=== PATIENT | male | born 1990 | race Caucasian/White ===

== ENCOUNTER 2016-11-21 17:00 | Emergency (ER) | payer OTHER ==
[~2016-11-21] VITALS: Ht 180.3 cm; Wt 144.0 kg
[2016-11-21 17:03] VITALS: Ht 180.3 cm; Wt 144.0 kg
[2016-11-21] MEDS ORDERED: IBUP-1050 PO (17:12)
[2016-11-21] MEDS ORDERED: LEVO200T PO (17:12)
[2016-11-21] MEDS ORDERED: ONDA4TAB46 PO (17:12)
[2016-11-21] MEDS ORDERED: IBUPROFEN 800 MG TAB PO STA (17:19)
[2016-11-21] MEDS ORDERED: ONDANSETRON INJ 2 MG/ML 2 ML VIAL IV STA (17:19)
[2016-11-21] MEDS ORDERED: SODIUM CHLORIDE 0.9% 1000ML 1,000 ML IV STA ×2 (17:19)
[2016-11-21] MEDS ORDERED: ACETAMINOPHEN 500 MG TAB PO STA (17:19)
[2016-11-21] MEDS ORDERED: IBUPROFEN 200 MG TAB ONE (17:25)
--- NOTE | 2016-11-21 17:26 | EMERGENCY ROOM VISIT NOTE ---
History First contact with patient: 17:08 Chief Complaint: ILLNESS Stated Complaint: VOMITING,DIARRHEA, CANT KEEP DOWN FLUIDS History of Present Illness The patient is a 26 year old male who presents to the Emergency Room with complaints of vomiting, diarrhea and body aches which started this morning. The patient reports that his symptoms started abruptly approximately 10 hours ago. He states that he has had multiple episodes of both vomiting and diarrhea. He has only been able to keep down a small amount of liquids. He reports that he took a Zofran which he had left over from a surgery which did give him some relief of his nausea. He attempted to take ibuprofen this morning but states that he vomited it up immediately afterward. He does state that he felt feverish last night. He has had body aches and a headache. He reports that his abdomen becomes sore when he vomits, but denies any abdominal pain. He denies any recent foreign travel, unknown water sources or recent antibiotic use. He does report that he ate a burger yesterday and it could have been uncooked. He denies any cough, chest pain, shortness of breath, neck pain, sore throat, earaches, urinary symptoms or blood in his bowel movements. He did receive a flu vaccine this year. 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 Review of Systems A complete 10-point Review of Systems was discussed with the patient, with pertinent positives and negatives listed in the History of Present Illness. All remaining Review of Systems questions can be considered negative unless otherwise specified. Social History Smoking Status: Never Smoker Current/Historical Medications Scheduled Ibuprofen (Advil), 400 MG PO DAILY Levothyroxine Sodium (Synthroid), 200 MCG PO DAILY Ondasetron Odt (Zofran Odt), 4 MG SL Q6H Scheduled PRN Ondansetron Hcl (Zofran), Unknown Dose PO Q8 PRN for Nausea or Vomiting Allergies Coded Allergies: No Known Allergies (Unverified , 11/21/16) Physical Exam Vital Signs Date Time Temp Pulse Resp B/P Pulse Ox O2 Delivery O2 Flow Rate FiO2 11/21/16 20:20 103 20 112/70 94 11/21/16 18:26 38.2 109 20 112/63 93 Room Air 11/21/16 18:04 116 11/21/16 17:03 38.9 122 22 116/67 96 Physical Exam VITALS: Vitals are noted on the nurse's note and reviewed by myself. Vital signs stable. GENERAL: This is a 26-year-old male, in no acute distress, nondiaphoretic, well- developed well-nourished. SKIN: The skin was without rashes. EARS: External auditory canals clear, tympanic membranes pearly mayorga without erythema or effusion bilaterally. EYES: Pupils equal round and reactive to light and accommodation. Conjunctivae without injection, sclerae without icterus. MOUTH: Mucous membranes moist. Tonsils are not enlarged. Pharynx without erythema or exudate. NECK: Supple without nuchal rigidity. No lymphadenopathy. HEART: Tachycardic, regular rhythm without murmurs gallops or rubs. LUNGS: Clear to auscultation bilaterally without wheezes, rales or rhonchi. ABDOMEN: Positive bowel sounds x 4. Soft, nondistended, nontender to palpation. NEURO: Patient was alert and oriented to person place and time. Medical Decision & Procedures Laboratory Results 11/21/16 17:30 Red Blood Count 4.83, Mean Corpuscular Volume 89.9, Mean Corpuscular Hemoglobin 32.1, Mean Corpuscular Hemoglobin Concent 35.7, Mean Platelet Volume 10.3, Neutrophils (%) (Auto) 88.6, Lymphocytes (%) (Auto) 6.6, Monocytes (%) (Auto) 4.5, Eosinophils (%) (Auto) 0.1, Basophils (%) (Auto) 0.0, Neutrophils # (Auto) 9.45, Lymphocytes # (Auto) 0.70, Monocytes # (Auto) 0.48, Eosinophils # (Auto) 0.01, Basophils # (Auto) 0.00 11/21/16 17:30 Test 11/21/16 17:30 11/21/16 17:35 11/21/16 19:05 White Blood Count 10.66 K/uL (4.8-10.8) Red Blood Count 4.83 M/uL (4.7-6.1) Hemoglobin 15.5 g/dL (14.0-18.0) Hematocrit 43.4 % (42-52) Mean Corpuscular Volume 89.9 fL (80-100) Mean Corpuscular Hemoglobin 32.1 pg (25-34) Mean Corpuscular Hemoglobin Concent 35.7 g/dl (32-36) Platelet Count 163 K/uL (130-400) Mean Platelet Volume 10.3 fL (7.4-10.4) Neutrophils (%) (Auto) 88.6 % Lymphocytes (%) (Auto) 6.6 % Monocytes (%) (Auto) 4.5 % Eosinophils (%) (Auto) 0.1 % Basophils (%) (Auto) 0.0 % Neutrophils # (Auto) 9.45 K/uL (1.4-6.5) Lymphocytes # (Auto) 0.70 K/uL (1.2-3.4) Monocytes # (Auto) 0.48 K/uL (0.11-0.59) Eosinophils # (Auto) 0.01 K/uL (0-0.5) Basophils # (Auto) 0.00 K/uL (0-0.2) RDW Standard Deviation 40.8 fL (36.4-46.3) RDW Coefficient of Variation 12.4 % (11.5-14.5) Immature Granulocyte % (Auto) 0.2 % Immature Granulocyte # (Auto) 0.02 K/uL (0.00-0.02) Anion Gap 8.0 mmol/L (3-11) Est Creatinine Clear Calc Drug Dose 124.1 ml/min Estimated GFR () 86.7 Estimated GFR (Non- 74.8 BUN/Creatinine Ratio 9.3 (10-20) Calcium Level 8.5 mg/dl (8.5-10.1) Total Bilirubin 0.7 mg/dl (0.2-1) Aspartate Amino Transf (AST/SGOT) 34 U/L (15-37) Alanine Aminotransferase (ALT/SGPT) 61 U/L (12-78) Alkaline Phosphatase 72 U/L (45-117) Total Protein 7.9 gm/dl (6.4-8.2) Albumin 3.8 gm/dl (3.4-5.0) Globulin 4.1 gm/dl (2.5-4.0) Albumin/Globulin Ratio 0.9 (0.9-2) Lipase 129 U/L (73-393) Influenza Type A Antigen Neg for Influ A (NEG) Influenza Type B Antigen Neg for Influ B (NEG) Urine Color YELLOW Urine Appearance CLOUDY (CLEAR) Urine pH 6.0 (4.5-7.5) Urine Specific [place] 1.018 (1.000-1.030) Urine Protein NEG (NEG) Urine Glucose (UA) NEG (NEG) Urine Ketones NEG (NEG) Urine Occult Blood NEG (NEG) Urine Nitrite NEG (NEG) Urine Bilirubin NEG (NEG) Urine Urobilinogen NEG (NEG) Urine Leukocyte Esterase NEG (NEG) Urine WBC (Auto) 0 /hpf (0-5) Urine RBC (Auto) 0-4 /hpf (0-4) Urine Hyaline Casts (Auto) 0 /lpf (0-5) Urine Epithelial Cells (Auto) 0-5 /lpf (0-5) Urine Bacteria (Auto) NEG (NEG) Medications Administered Medications (Trade) Dose Ordered Sig/Lele Route Start Time Stop Time Status Last Admin Dose Admin Sodium Chloride 1,000 ml @ 999 mls/hr Q1H1M STAT IV 11/21/16 17:19 11/21/16 18:19 DC 11/21/16 17:25 999 MLS/HR Sodium Chloride (Nss 1000ml) 1,000 ml @ 999 mls/hr Q1H1M STAT IV 11/21/16 17:19 11/21/16 18:19 DC 11/21/16 17:26 999 MLS/HR Ondansetron HCl (Zofran Inj) 4 mg NOW STAT IV 11/21/16 17:19 11/21/16 17:21 DC 11/21/16 17:25 4 MG Ibuprofen (Motrin Tab) 800 mg NOW STAT PO 11/21/16 17:19 11/21/16 17:21 DC 11/21/16 17:19 800 MG Acetaminophen (Tylenol Tab) 1,000 mg NOW STAT PO 11/21/16 17:19 11/21/16 17:21 DC 11/21/16 17:26 1,000 MG Medical Decision Differential diagnosis includes gastroenteritis, colitis, influenza, viral illness, appendicitis, cholecystitis, pancreatitis, among others. The patient was evaluated as above. Labs were drawn and IV access was obtained. Imaging studies were performed and read by radiology as above. The patient was medicated with 2 L normal saline solution, 800 mg ibuprofen and 4 mg Zofran. The patient was reassessed multiple times during their stay in the emergency department and remained in stable condition. The patient is a 26-year-old male who presents today complaining of flulike symptoms. He was febrile on presentation. Labs revealed no leukocytosis, anemia or concerning electrolyte abnormalities. The patient felt significantly better after IV hydration and antiemetics. His temperature improved after ibuprofen. His heart rate improved after hydration and fever control. Urinalysis was not suggestive of infection. Influenza testing was negative. I feel the patient's symptoms are likely secondary to a viral flulike illness. He has no abdominal tenderness and I do not feel that further testing is necessary at this time. The patient was instructed to follow closely with his primary care provider or return here for any worsening symptoms. Based on the patient's presentation, lab results, and imaging studies, I feel the patient is stable for outpatient treatment. The patient's case was reviewed with Dr. Oliver, ED attending physician, who agreed with my assessment and treatment plan. Discharge instructions were reviewed with the patient. The patient verbalized understanding of my assessment and treatment plan and was discharged home in good condition. Impression Primary Impression: Flu-like symptoms Departure Information Dispostion Home / Self-Care Condition GOOD Prescriptions Ondasetron Odt (ZOFRAN ODT) 4 Mg Tab 4 MG SL Q6H for Nausea, #15 TAB Prov: Pearl Kyle ., ALBERTO 11/21/16 Referrals No Doctor, Assigned (PCP) Patient Instructions My [facility] Additional Instructions Rest and drink plenty of fluids. You have been prescribed Zofran to be used for any nausea or vomiting. Take as prescribed. For pain/fever control, you can use the following [id number] medicines ( if >12 yo): - Regular strength (325mg/tab) Tylenol (acetaminophen) 2 tabs every 4-6 hours as needed. Do not exceed 12 tablets in a 24 hour period. Avoid taking more than 4 grams (4000 mg) of Tylenol per day. This includes any other sources of acetaminophen you may take on a regular basis. - Regular strength (200 mg/tab) Advil (ibuprofen) 1-2 tabs every 4-6 hours as needed. Do not exceed a dose of 3200 mg per day. If symptoms persist for greater than 1-2 days, follow-up with [facility] or a primary care provider. For any worsening symptoms or new/concerning symptoms, return to the emergency department.
[2016-11-21 18:26] VITALS: TEMP 38.2
[2016-11-21 19:01] LABS: COMPLETE YES; EOS % 0.1 %; HEMATOCRIT 43.4 % (42-52); IG% 0.2 %; LYMPH % 6.6 %; MEAN CELL VOLUME 89.9 fL (80-100); MEAN CORPUSCULAR HEMOGLOBIN 32.1 pg (25-34); MEAN CORPUSCULAR HGB CONC 35.7 g/dl (32-36); MEAN PLATELET VOLUME 10.3 fL (7.4-10.4); MONO % 4.5 %; NEUT % 88.6 %; PLATELET COUNT 163 K/uL (130-400); RED BLOOD COUNT 4.83 M/uL (4.7-6.1); WHITE BLOOD COUNT 10.66 K/uL (4.8-10.8)
[2016-11-21 19:14] LABS: URINE APPEARANCE CLOUDY (CLEAR); URINE BILIRUBIN NEG (NEG); URINE COLOR YELLOW; URINE EPITHELIAL CELL AUTO 0-5 /lpf (0-5); URINE NITRITE NEG (NEG); URINE SPECIFIC GRAVITY 1.018 (1.000-1.030); UROBILINOGEN NEG (NEG); ZZUR CULT IF INDIC CLEAN CATCH NO
[2016-11-21 19:16] LABS: MANUAL MICROSCOPIC REQUIRED? NO; REVIEW REQ? NO
[2016-11-21 19:23] LABS: BUN/CREATININE RATIO 9.3 (10-20); CALCIUM 8.5 mg/dl (8.5-10.1); CREATININE 1.3 mg/dl (0.60-1.40); POTASSIUM 3.8 mmol/L (3.5-5.1)
[2016-11-21 19:25] LABS: ALB/GLOB RATIO 0.9 (0.9-2)
[2016-11-21] MEDS ORDERED: ONDA4TAB10 SL (20:05)
[2016-11-21 20:20] VITALS: BP 112/70; PULSE 103; O2SAT 94
[2016-11-27] MEDS ORDERED: ZTHM250 PO (14:26)
== END 2016-11-21 20:08 | disposition home or self-care (01) ==
LOC: C.EDB 17:02 → C.EDC 20:08
DX: J11.1 Influenza due to unidentified influenza virus with other respiratory manifestations (principal); Z79.899 Other long term (current) drug therapy

== ENCOUNTER 2016-11-25 16:01 | Inpatient (IN) | payer OTHER ==
[~2016-11-25] VITALS: Ht 180.3 cm; Wt 142.0 kg
[~2016-11-25 16:01] MED LIST: IBUP-1050 PO; LEVO200T PO; ONDA4TAB10 SL; ONDA4TAB46 PO
[2016-11-25] MEDS ORDERED: SODIUM CHLORIDE 0.9% 1000ML 2,000 ML IV STA (17:32)
[2016-11-25] MEDS ORDERED: ONDANSETRON INJ 2 MG/ML 2 ML VIAL IV STA (17:32)
[2016-11-25] MEDS ORDERED: ACETAMINOPHEN 500 MG TAB PO STA (17:32)
--- NOTE | 2016-11-25 17:35 | EMERGENCY ROOM VISIT NOTE ---
History Report prepared by Nicholas: Tylor Rubio Under the Supervision of: Dr. Dony Johnson M.D. First contact with patient: 17:22 Chief Complaint: RECTAL BLEEDING Stated Complaint: VERY BLOODY LQUID STOOL, FEVER Nursing Triage Summary: pt to [facility] ED with 1 episode of bright red blood with BM about 1 hr ago pt was seen here on wednesday with n/v/d the n/v have gone away History of Present Illness The patient is a 26 year old male who presents to the Emergency Room with complaints of episodes of rectal bleeding occurring earlier today. He notes he was here 4 days ago with a fever, vomiting, and diarrhea. He reports that the vomiting has stopped, but that the fever has persisted intermittently, and notes a temperature of 100.5 today. He notes also the diarrhea has persisted and has been loose and liquidy. He has noticed a small amount of blood mixed in with his stool the past few days, and notes that today he had two bowel movements that consisted only of blood without any stool. The patient denies taking blood thinners regularly, but notes he has been alternating with Acetaminophen and Ibuprofen for the past few days, the last was today with Ibuprofen. He notes having abdominal cramping that is new today, and denies any past abdominal surgeries or past ulcers. He adds that he currently feels somewhat dehydrated. The patient reports taking Synthroid 200 mcg. He denies any recent sick contacts, and reports being on a z-pack this past July of 2016. The patient notes he was seen at [facility] after his ER visit 4 days ago, and reports that his platelets were abnormal. He adds that his stool culture was negative for C. diff. Source of History: patient Onset: earlier today Position: other (rectum) Quality: other (rectal bleeding) Timing: other (episodes) Associated Symptoms: + abdominal pain (cramping), + diarrhea, + fevers, No vomiting Review of Systems See HPI for pertinent positives & negatives. A total of 10 systems reviewed and were otherwise negative. Past Medical & Surgical No past medical problems stated. Family History No pertinent family history stated. Social History Smoking Status: Never Smoker Marital Status: in relationship Current/Historical Medications Scheduled Levothyroxine Sodium (Synthroid), 200 MCG PO DAILY Scheduled PRN Ibuprofen (Advil), 200-600 MG PO DAILY PRN for Pain Ondasetron Odt (Zofran Odt), 4 MG SL Q6H PRN for Nausea or Vomiting Allergies Coded Allergies: No Known Allergies (Unverified , 11/25/16) Physical Exam Vital Signs Date Time Temp Pulse Resp B/P Pulse Ox O2 Delivery O2 Flow Rate FiO2 11/25/16 21:56 88 20 118/73 96 Room Air 11/25/16 21:01 88 20 115/70 96 Room Air 11/25/16 19:42 88 20 115/70 96 Room Air 11/25/16 18:13 80 11/25/16 16:13 37.7 109 20 121/77 96 Room Air Physical Exam GENERAL: Patient is in no acute distress. HEENT: No acute trauma, normocephalic atraumatic, mucous membranes moist, no nasal congestion, no scleral icterus. NECK: No stridor, no adenopathy, no meningismus, trachea is midline. LUNGS: Clear to auscultation bilaterally, no wheeze, no rhonchi, breath sounds equal. HEART: Without murmurs gallops or rubs, regular rate and rhythm. ABDOMEN: Soft, nontender, bowel sounds positive and hyperactive, no hernias, no peritonitis. EXTREMITIES: No cyanosis or edema, full range of motion of all the joints without pain or difficulty, no signs for acute trauma. NEUROLOGIC: Oriented x 3, no acute motor or sensory deficits, no focal weakness. SKIN: No rash, no jaundice, no diaphoresis. RECTAL: No external source for bleeding. Digital exam reveals no stool, but heme testing was positive. Medical Decision & Procedures ER Provider Diagnostic Interpretation: Radiology results and stated below per my review and radiologist interpretation: ABDOMEN AND PELVIS CT WITH IV AND ORAL CONTRAST FINDINGS: Minimal bibasilar atelectasis. Fatty infiltration of liver. Gallbladder is negative for distention. Kidneys enhance uniformly. Spleen and pancreas are unremarkable. Cecum and proximal ascending colon shows significant wall thickening and/or edematous change. Terminal ileum appears to be unremarkable. There is a trace amount. A colonic infiltrative change with a trace amount of fluid within the lower right paracolic gutter region. At this point and air-filled appendix is identified. The appendix most likely is normal with a trace amount surrounding reactive fluid. Possibility of a colitis versus the less likely possibility of appendicitis epiploica or cecal diverticulitis is a consideration. There is no drainable abscess or collection. The remainder the colon demonstrates a slight degree of wall thickening of the transverse and descending colonic regions. Moderate amount of fecal material is identified within the sigmoid. There is again no evidence for abscess collection or obstruction. IMPRESSION: 1. Findings consistent with wall thickening and pericolonic infiltrative change of the cecum, proximal a sending colon, as well as components of the descending and sigmoid regions. 2. Trace pericolonic fluid with no evidence for abscess collection or obstruction. 3. The appendix is considered air-filled and most likely normal 4. Overall, the appearance is most consistent with that of a nonspecific colitis, with possibility of a superimposed component of cecal diverticulitis a less likely possibility. Electronically signed by: Ata Velazquez M.D. 11/25/2016 8:46 PM Dictated Date/Time: 11/25/2016 8:40 PM Laboratory Results 11/25/16 17:43 Red Blood Count 4.82, Mean Corpuscular Volume 87.8, Mean Corpuscular Hemoglobin 31.3, Mean Corpuscular Hemoglobin Concent 35.7, Mean Platelet Volume 9.3, Neutrophils (%) (Auto) 62.0, Lymphocytes (%) (Auto) 18.8, Monocytes (%) (Auto) 17.1, Eosinophils (%) (Auto) 0.4, Basophils (%) (Auto) 0.4, Neutrophils # (Auto ) 3.31, Lymphocytes # (Auto) 1.00, Monocytes # (Auto) 0.91, Eosinophils # (Auto ) 0.02, Basophils # (Auto) 0.02 11/25/16 17:43 Test 11/25/16 17:43 White Blood Count 5.33 K/uL (4.8-10.8) Red Blood Count 4.82 M/uL (4.7-6.1) Hemoglobin 15.1 g/dL (14.0-18.0) Hematocrit 42.3 % (42-52) Mean Corpuscular Volume 87.8 fL (80-100) Mean Corpuscular Hemoglobin 31.3 pg (25-34) Mean Corpuscular Hemoglobin Concent 35.7 g/dl (32-36) Platelet Count 187 K/uL (130-400) Mean Platelet Volume 9.3 fL (7.4-10.4) Neutrophils (%) (Auto) 62.0 % Lymphocytes (%) (Auto) 18.8 % Monocytes (%) (Auto) 17.1 % Eosinophils (%) (Auto) 0.4 % Basophils (%) (Auto) 0.4 % Neutrophils # (Auto) 3.31 K/uL (1.4-6.5) Lymphocytes # (Auto) 1.00 K/uL (1.2-3.4) Monocytes # (Auto) 0.91 K/uL (0.11-0.59) Eosinophils # (Auto) 0.02 K/uL (0-0.5) Basophils # (Auto) 0.02 K/uL (0-0.2) RDW Standard Deviation 39.9 fL (36.4-46.3) RDW Coefficient of Variation 12.4 % (11.5-14.5) Immature Granulocyte % (Auto) 1.3 % Immature Granulocyte # (Auto) 0.07 K/uL (0.00-0.02) Prothrombin Time 11.0 SECONDS (9.0-12.0) Prothromb Time International Ratio 1.0 (0.9-1.1) Activated Partial Thromboplast Time 27.1 SECONDS (21.0-31.0) Partial Thromboplastin Ratio 1.0 Anion Gap 8.0 mmol/L (3-11) Est Creatinine Clear Calc Drug Dose 133.3 ml/min Estimated GFR () 95.5 Estimated GFR (Non- 82.4 BUN/Creatinine Ratio 5.8 (10-20) Calcium Level 8.9 mg/dl (8.5-10.1) Total Bilirubin 0.6 mg/dl (0.2-1) Aspartate Amino Transf (AST/SGOT) 28 U/L (15-37) Alanine Aminotransferase (ALT/SGPT) 50 U/L (12-78) Alkaline Phosphatase 80 U/L (45-117) Total Protein 7.6 gm/dl (6.4-8.2) Albumin 3.2 gm/dl (3.4-5.0) Globulin 4.4 gm/dl (2.5-4.0) Albumin/Globulin Ratio 0.7 (0.9-2) Laboratory results reviewed by me. Medications Administered Medications (Trade) Dose Ordered Sig/Lele Route Start Time Stop Time Status Last Admin Dose Admin Sodium Chloride (Nss 1000ml) 2,000 ml @ 999 mls/hr Q2H1M STAT IV 11/25/16 17:32 11/25/16 19:32 DC 11/25/16 18:02 999 MLS/HR Ondansetron HCl (Zofran Inj) 4 mg NOW STAT IV 11/25/16 17:32 11/25/16 17:35 DC 11/25/16 18:02 4 MG Acetaminophen (Tylenol Tab) 1,000 mg NOW STAT PO 11/25/16 17:32 11/25/16 17:35 DC 11/25/16 18:03 1,000 MG ED Course 1724: The patient was evaluated in room C7. A complete history and physical exam was performed. 1731: Ordered Acetaminophen 1,000 mg PO, Zofran Inj 4 mg IV, and NSS 2,000 ml @ 999 mls/hr IV. 2099: Discussed the patient's case with Dr. Bradley who advises that the patient stay in the hospital. 2104: I updated the patient. 2114: Discussed the patient's case with Dr. Berkowitz. The patient will be evaluated for further management. Medical Decision Differentials include diverticulitis or colitis, upper or lower GI bleed, anemia , coagulopathy, and dehydration. There is no leukocytosis or concerning anemia. No significant electrolyte abnormality, kidney failure or hepatitis. Stool C. difficile testing was negative, stool cultures are pending. Abdominal and pelvis CT shows evidence for colitis, no diverticulitis, no abscess. The patient has had bloody stool, he has a fever, he's been sick for multiple days and is not improving. I did discuss this case with the on-call GI physician, admission/observation was recommended. The patient may require a colonoscopy. At this point, his colitis could be infectious, possibly bacterial , possibly viral. He has failed outpatient treatment. I did talk to the patient and the case finisher. The on-call hospitalist was consulted. Consults Time Called: 2049 Consulting Physician: Lili Moses Returned Call: [phone] Discussed the patient's case with Dr. Bradley who advises that the patient stay in the hospital. Additional Consults: Time Called: 2109 Consulted Physician: SHARON Oakes Returned Call: [phone] Additional Comments: Discussed the patient's case with Dr. Berkowitz. The patient will be evaluated for further management. Impression Primary Impression: Rectal bleeding Additional Impressions: Colitis Failure of outpatient treatment Scribe Attestation The scribe's documentation has been prepared under my direction and personally reviewed by me in its entirety. I confirm that the note above accurately reflects all work, treatment, procedures, and medical decision making performed by me. Departure Information Dispostion Being Evaluated By Hospitalist Referrals Arlen Ordoñez M.D. (PCP) Patient Instructions My [facility] Problem Qualifiers
[2016-11-25] MEDS ORDERED: ONDA4TAB10 SL (17:55)
[2016-11-25 17:56] LABS: BASO % 0.4 %; BASO ABS # 0.02 K/uL (0-0.2); COMPLETE YES; EOS % 0.4 %; HEMATOCRIT 42.3 % (42-52); IG% 1.3 %; LYMPH % 18.8 %; MEAN CELL VOLUME 87.8 fL (80-100); MEAN CORPUSCULAR HEMOGLOBIN 31.3 pg (25-34); MEAN CORPUSCULAR HGB CONC 35.7 g/dl (32-36); MEAN PLATELET VOLUME 9.3 fL (7.4-10.4); MONO % 17.1 %; PLATELET COUNT 187 K/uL (130-400); RED BLOOD COUNT 4.82 M/uL (4.7-6.1); WHITE BLOOD COUNT 5.33 K/uL (4.8-10.8)
[2016-11-25] MEDS ORDERED: OPTIRAY 320 IV PRN (18:15)
[2016-11-25 18:30] LABS: BUN/CREATININE RATIO 5.8 (10-20); CALCIUM 8.9 mg/dl (8.5-10.1); CREATININE 1.2 mg/dl (0.60-1.40)
[2016-11-25 18:33] LABS: ALB/GLOB RATIO 0.7 (0.9-2)
--- NOTE | 2016-11-25 20:47 | DIAGNOSTIC IMAGING REPORT ---
ABDOMEN AND PELVIS CT WITH IV AND ORAL CONTRAST CT DOSE: 1517.05 mGy.cm HISTORY: Pain ABDOMINAL PAIN/GI--? DIVERTICULITIS--GIVE PO AND IV CONTRAST TECHNIQUE: Multiaxial CT images of the abdomen and pelvis were performed following the use of intravenous and oral contrast. COMPARISON STUDY: None. FINDINGS: Minimal bibasilar atelectasis. Fatty infiltration of liver. Gallbladder is negative for distention. Kidneys enhance uniformly. Spleen and pancreas are unremarkable. Cecum and proximal ascending colon shows significant wall thickening and/or edematous change. Terminal ileum appears to be unremarkable. There is a trace amount. A colonic infiltrative change with a trace amount of fluid within the lower right paracolic gutter region. At this point and air-filled appendix is identified. The appendix most likely is normal with a trace amount surrounding reactive fluid. Possibility of a colitis versus the less likely possibility of appendicitis epiploica or cecal diverticulitis is a consideration. There is no drainable abscess or collection. The remainder the colon demonstrates a slight degree of wall thickening of the transverse and descending colonic regions. Moderate amount of fecal material is identified within the sigmoid. There is again no evidence for abscess collection or obstruction. IMPRESSION: 1. Findings consistent with wall thickening and pericolonic infiltrative change of the cecum, proximal a sending colon, as well as components of the descending and sigmoid regions. 2. Trace pericolonic fluid with no evidence for abscess collection or obstruction. 3. The appendix is considered air-filled and most likely normal 4. Overall, the appearance is most consistent with that of a nonspecific colitis, with possibility of a superimposed component of cecal diverticulitis a less likely possibility. Electronically signed by: Ata Velazquez M.D. 11/25/2016 8:46 PM Dictated Date/Time: 11/25/2016 8:40 PM
[2016-11-25] MEDS ORDERED: ACETAMINOPHEN 325 MG TAB PO PRN (22:00)
[2016-11-25] MEDS ORDERED: ZOLPIDEM TARTRATE 5 MG TAB PO PRN (22:00)
[2016-11-25] MEDS ORDERED: ONDANSETRON INJ 2 MG/ML 2 ML VIAL IV PRN (22:15)
[2016-11-25] MEDS ORDERED: ACETAMINOPHEN IV 100 ML IV PRN (22:15)
[2016-11-25] MEDS ORDERED: MoRPHine SULFATE 4 MG/ML 1 ML CARP\\VIAL IV PRN (22:15)
[2016-11-25] MEDS ORDERED: MoRPHine SULFATE 2 MG/ML CARP IV PRN (22:15)
--- NOTE | 2016-11-25 22:27 | History and Physical ---
History & Physical Date & Time of Service: Nov 25, 2016 at 22:28 Chief Complaint: Very Bloody Lquid Stool, Fever Primary Care Physician: Arlen Ordoñez M.D. History of Present Illness Source: patient The patient is a 26-year-old male who initially presented to the emergency department 4 days ago with fever, vomiting and diarrhea. Since that time, the vomiting has stopped, but the temperature has been intermittently elevated and today was 100.5F. The diarrhea has been persistent as well, but the past few days has been mixed with blood, and today he had 2 bowel movements that were only of blood without any stool. He reports that he has been taking acetaminophen alternating with ibuprofen over the past few days. Abdominal cramping is new today he has not had any recent travel, and has not had any sick exposures. He was seen at [facility] after his ER visit 4 days ago, and reports having a stool test that was negative for C. difficile. He has not been on any recent antibiotics. Upon questioning, he reports that his symptoms occurred shortly after eating a hamburger at an eatery downtown. Social History Smoking Status: Never Smoker Smokeless Tobacco Use: No Alcohol Use: none Drug Use: none Marital Status: , in relationship Housing status: lives with family Occupational Status: employed Multi-Drug Resistant Organisms History of MDRO: No Allergies Coded Allergies: No Known Allergies (Unverified , 11/25/16) Home Medications Scheduled Levothyroxine Sodium (Synthroid), 200 MCG PO DAILY Scheduled PRN Ibuprofen (Advil), 200-600 MG PO DAILY PRN for Pain Ondasetron Odt (Zofran Odt), 4 MG SL Q6H PRN for Nausea or Vomiting Review of Systems The patient denies chest pain, palpitations, shortness of breath, cough, lower extremity swelling, vision change, hearing change, sore throat, fevers, chills, sweats, weight change, blood in urine, dysuria, urinary frequency or urgency, lightheadedness, dizziness, headache, memory loss, rash, abnormal bruising or bleeding, imbalance, focal or generalized weakness, numbness or tingling in arms or legs, back or neck pain, night sweats, or allergy symptoms. The review of systems is otherwise negative other than for that already noted above, and at least 10 systems have been reviewed. Physical Exam Vital Signs Date Time Temp Pulse Resp B/P Pulse Ox O2 Delivery O2 Flow Rate FiO2 11/25/16 21:56 88 20 118/73 96 Room Air 11/25/16 21:01 88 20 115/70 96 Room Air 11/25/16 19:42 88 20 115/70 96 Room Air 11/25/16 18:13 80 11/25/16 16:13 37.7 109 20 121/77 96 Room Air The patient is awake, well-developed and adequately nourished, alert and oriented 3, normocephalic and atraumatic, lying in bed and in no acute distress. HEENT--PERRL, EOMI, mucous membranes and oropharynx dry. Neck--supple, no JVD or bruits, thyroid normal, trachea midline, no adenopathy. Heart--normal S1 and S2, no extra beats, no murmurs, rubs or gallops. Lungs--clear bilaterally with good air movement, no respiratory distress, no accessory muscle use. Abdomen--normal bowel sounds and soft, nontender and nondistended, no hernias or masses, no organomegaly. Extremities--no cyanosis, clubbing or edema. There are good distal pulses b/l. Dermatologic--normal skin turgor, normal color, warm and dry, no abnormal lymph nodes, no rash. Neurologic--cranial nerves II through XII grossly intact, motor and sensory examination normal. Rheumatologic--normal range of motion, nontender, muscles and joints. Psychiatric--normal affect. Diagnostics Laboratory Results Results Past 24 Hours Test 11/25/16 17:43 Range/Units White Blood Count 5.33 4.8-10.8 K/uL Red Blood Count 4.82 4.7-6.1 M/uL Hemoglobin 15.1 14.0-18.0 g/dL Hematocrit 42.3 42-52 % Mean Corpuscular Volume 87.8 80-100 fL Mean Corpuscular Hemoglobin 31.3 25-34 pg Mean Corpuscular Hemoglobin Concent 35.7 32-36 g/dl Platelet Count 187 130-400 K/uL Mean Platelet Volume 9.3 7.4-10.4 fL Neutrophils (%) (Auto) 62.0 % Lymphocytes (%) (Auto) 18.8 % Monocytes (%) (Auto) 17.1 % Eosinophils (%) (Auto) 0.4 % Basophils (%) (Auto) 0.4 % Neutrophils # (Auto) 3.31 1.4-6.5 K/uL Lymphocytes # (Auto) 1.00 1.2-3.4 K/uL Monocytes # (Auto) 0.91 0.11-0.59 K/uL Eosinophils # (Auto) 0.02 0-0.5 K/uL Basophils # (Auto) 0.02 0-0.2 K/uL RDW Standard Deviation 39.9 36.4-46.3 fL RDW Coefficient of Variation 12.4 11.5-14.5 % Immature Granulocyte % (Auto) 1.3 % Immature Granulocyte # (Auto) 0.07 0.00-0.02 K/uL Prothrombin Time 11.0 9.0-12.0 SECONDS Prothromb Time International Ratio 1.0 0.9-1.1 Activated Partial Thromboplast Time 27.1 21.0-31.0 SECONDS Partial Thromboplastin Ratio 1.0 Sodium Level 136 136-145 mmol/L Potassium Level 4.0 3.5-5.1 mmol/L Chloride Level 104 98-107 mmol/L Carbon Dioxide Level 24 21-32 mmol/L Anion Gap 8.0 3-11 mmol/L Blood Urea Nitrogen 7 7-18 mg/dl Creatinine 1.20 0.60-1.40 mg/dl Est Creatinine Clear Calc Drug Dose 133.3 ml/min Estimated GFR () 95.5 Estimated GFR (Non- 82.4 BUN/Creatinine Ratio 5.8 10-20 Random Glucose 97 70-99 mg/dl Calcium Level 8.9 8.5-10.1 mg/dl Total Bilirubin 0.6 0.2-1 mg/dl Aspartate Amino Transf (AST/SGOT) 28 15-37 U/L Alanine Aminotransferase (ALT/SGPT) 50 12-78 U/L Alkaline Phosphatase 80 45-117 U/L Total Protein 7.6 6.4-8.2 gm/dl Albumin 3.2 3.4-5.0 gm/dl Globulin 4.4 2.5-4.0 gm/dl Albumin/Globulin Ratio 0.7 0.9-2 Microbiology Results 11/25/16 Shiga Toxin Test, Received Pending 11/25/16 Stool Culture, Received Pending 11/25/16 C.difficile Toxin B Gene (PCR), Received Pending Diagnostic Radiology Patient Name: LUBNA QUIÑONES Unit Number: [id number] Dictated: 11/25/162039 Transcribed: 11/25/162039 MS Printed Date/Time: [~ rep prt dt]/[~ rep prt tm] [~ rep ct labl] - [~ rep ct ivnm] [facility] Radiology Department [place] [id number] Dictated: 11/25/162039 Transcribed: 11/25/162039 MS Printed Date/Time: [~ rep prt dt]/[~ rep prt tm] [~ rep ct labl] - [~ rep ct ivnm] ABDOMEN AND PELVIS CT WITH IV AND ORAL CONTRAST CT DOSE: 1517.05 mGy.cm HISTORY: Pain ABDOMINAL PAIN/GI--? DIVERTICULITIS--GIVE PO AND IV CONTRAST TECHNIQUE: Multiaxial CT images of the abdomen and pelvis were performed following the use of intravenous and oral contrast. COMPARISON STUDY: None. FINDINGS: Minimal bibasilar atelectasis. Fatty infiltration of liver. Gallbladder is negative for distention. Kidneys enhance uniformly. Spleen and pancreas are unremarkable. Cecum and proximal ascending colon shows significant wall thickening and/or edematous change. Terminal ileum appears to be unremarkable. There is a trace amount. A colonic infiltrative change with a trace amount of fluid within the lower right paracolic gutter region. At this point and air-filled appendix is identified. The appendix most likely is normal with a trace amount surrounding reactive fluid. Possibility of a colitis versus the less likely possibility of appendicitis epiploica or cecal diverticulitis is a consideration. There is no drainable abscess or collection. The remainder the colon demonstrates a slight degree of wall thickening of the transverse and descending colonic regions. Moderate amount of fecal material is identified within the sigmoid. There is again no evidence for abscess collection or obstruction. IMPRESSION: 1. Findings consistent with wall thickening and pericolonic infiltrative change of the cecum, proximal a sending colon, as well as components of the descending and sigmoid regions. 2. Trace pericolonic fluid with no evidence for abscess collection or obstruction. 3. The appendix is considered air-filled and most likely normal 4. Overall, the appearance is most consistent with that of a nonspecific colitis, with possibility of a superimposed component of cecal diverticulitis a less likely possibility. Electronically signed by: Ata Velazquez M.D. 11/25/2016 8:46 PM Dictated Date/Time: 11/25/2016 8:40 PM The status of this report is Signed. Draft = Not yet reviewed or approved by Radiologist. Signed = Reviewed and approved by Radiologist. <AttendingPhy></AttendingPhy> <FamilyPhy>Daljit Hernandez D.O.</FamilyPhy> < PrimaryPhy>Arlen Ordoñez M.D.</PrimaryPhy> <UnitNumber>[id number]</UnitNumber> < VisitNumber>[id number]</VisitNumber> <PatientName>LUBNA QUIÑONES</PatientName > <DateOfBirth>1990</DateOfBirth> <Location>[facility]</Location> <ServiceDate> 11/25/16</ServiceDate> <MNE>ESINDI</MNE> <OrderingPhy>Dony Johnson M.D.</ OrderingPhy> <OrderingPhyMNE>f rep ord dr casanova</OrderingPhyMNE> <DictatingPhyMNE> f rep dict dr casanova</DictatingPhyMNE> <CCListMNE>f rep ct edilberto</CCListMNE> < AdmittingPhyMNE>f pt admit dr casanova</AdmittingPhyMNE> <AttendingPhyMNE>f pt attend dr casanova</AttendingPhyMNE> <ConsultingPhyMNE>f pt consult dr casanova</ConsultingPhyMNE> <FamilyPhyMNE>f pt fam dr casanova</FamilyPhyMNE> <OtherPhyMNE>f pt other dr casanova</OtherPhyMNE> < PrimaryPhyMNE>f pt prim care dr casanova</PrimaryPhyMNE> <ReferringPhyMNE>f pt referring dr casanova</ReferringPhyMNE> Impression Assessment and Plan Nonspecific colitis/possible toxin induced food poisoning--the patient will be admitted to the medical floor, primarily nothing by mouth but will be allowed to have sips of water. He reportedly had a negative stool for C. difficile, and will have additional studies for stool culture and ova and parasites. I would not start him on antibiotics at this time, and would not unless studies return definitively suggesting that antibiotics would be of benefit. We'll follow CBC with differential, chemistry profile and magnesium levels. Dr. Bradley was notified by the ED of the patient and will therefore consulted. We will have Zofran 4 mg IV every 6 hours when necessary, Protonix 40 mg IV daily, and morphine sulfate 2-4 mg IV every 2 hours when necessary. Hypothyroidism--continue levothyroxine sodium at 200 g by mouth daily. Level of Care Med/Surg Advanced Directives Existing Advance Directive: No Existing Living Will: No Existing Power of Cabin Cleaning Supervisor: No Resuscitation Status FULL RESUSCITATION VTE Prophylaxis VTE Risk Assessment Done? Y/N: Yes Risk Level: Low Given or contraindicated: SCD's Social Service Consult None Apply
[2016-11-26] VITALS (7 sets, daily range): BP systolic 134–145; BP diastolic 62–83; PULSE 79–94; TEMP 36.6–38.2; O2SAT 82–98; Ht 180.3 cm; Wt 142.0 kg
[2016-11-26] MEDS: NSS + 20MEQ KCL 1000ML 1,000 ML IV SCH ×3 (04:52→22:38)
[2016-11-26] MEDS: LEVOTHYROXINE 200 MCG TAB PO SCH (06:23)
[2016-11-26 07:36] LABS: BASO % 0.5 %; BASO ABS # 0.02 K/uL (0-0.2); COMPLETE YES; EOS % 0.8 %; HEMATOCRIT 40.3 % (42-52); IG% 2.1 %; LYMPH % 27.2 %; LYMPH ABS # 1.03 K/uL (1.2-3.4); MEAN CELL VOLUME 90.2 fL (80-100); MEAN CORPUSCULAR HGB CONC 35.5 g/dl (32-36); MEAN PLATELET VOLUME 9.5 fL (7.4-10.4); MONO % 18.3 %; NEUT % 51.1 %; PLATELET COUNT 167 K/uL (130-400); RED BLOOD COUNT 4.47 M/uL (4.7-6.1); WHITE BLOOD COUNT 3.78 K/uL (4.8-10.8)
--- NOTE | 2016-11-26 07:39 | Hospitalist Progress Note ---
Hospitalist Progress Note Date of Service Nov 26, 2016. Subjective Pt evaluation today including: conversation w/ patient, physical exam, chart review, lab review Improvement in diarrhea. Low grade fevers. No abd pain Medications Medications (Trade) Dose Ordered Sig/Lele Route Start Time Stop Time Status Last Admin Dose Admin Sodium Chloride (Nss 1000ml) 2,000 ml @ 999 mls/hr Q2H1M STAT IV 11/25/16 17:32 11/25/16 19:32 DC 11/25/16 18:02 999 MLS/HR Ondansetron HCl (Zofran Inj) 4 mg NOW STAT IV 11/25/16 17:32 11/25/16 17:35 DC 11/25/16 18:02 4 MG Acetaminophen (Tylenol Tab) 1,000 mg NOW STAT PO 11/25/16 17:32 11/25/16 17:35 DC 11/25/16 18:03 1,000 MG Acetaminophen (Tylenol Tab) 650 mg Q4H PRN PO 11/25/16 22:00 12/25/16 21:59 11/26/16 04:59 650 MG Levothyroxine Sodium 200 mcg 200 mcg DAILYBB PO 11/26/16 06:30 12/26/16 06:29 11/26/16 06:23 200 MCG Potassium Chloride/Sodium Chloride (Nss + 20meq KCl 1000ml) 1,000 ml @ 100 mls/hr Q10H IV 11/26/16 02:30 12/26/16 02:29 11/26/16 04:52 100 MLS/HR Objective Vital Signs Date Time Temp Pulse Resp B/P Pulse Ox O2 Delivery O2 Flow Rate FiO2 11/26/16 04:59 38.2 11/26/16 01:13 36.9 88 18 134/80 96 Room Air 11/26/16 00:57 Room Air 11/25/16 23:32 37.7 85 20 121/77 96 11/25/16 23:25 85 20 121/77 96 Room Air 11/25/16 21:56 88 20 118/73 96 Room Air 11/25/16 21:01 88 20 115/70 96 Room Air 11/25/16 19:42 88 20 115/70 96 Room Air 11/25/16 18:13 80 11/25/16 16:13 37.7 109 20 121/77 96 Room Air Physical Exam General Appearance: WD/WN, no apparent distress Eyes: normal inspection, PERRL ENT: normal ENT inspection, hearing grossly normal, TMs normal Neck: supple, no JVD Respiratory/Chest: chest non-tender, lungs clear, normal breath sounds Cardiovascular: regular rate, rhythm, no edema, no gallop Abdomen: normal bowel sounds, non tender, soft, no organomegaly Extremities: normal range of motion, normal inspection Neurologic/Psychiatric: front end assistant II-XII nml as tested, normal mood/affect Skin: normal color Laboratory Results Last 24 Hours Test 11/25/16 17:43 11/26/16 07:04 White Blood Count 5.33 K/uL 3.78 K/uL Red Blood Count 4.82 M/uL 4.47 M/uL Hemoglobin 15.1 g/dL 14.3 g/dL Hematocrit 42.3 % 40.3 % Mean Corpuscular Volume 87.8 fL 90.2 fL Mean Corpuscular Hemoglobin 31.3 pg 32.0 pg Mean Corpuscular Hemoglobin Concent 35.7 g/dl 35.5 g/dl Platelet Count 187 K/uL 167 K/uL Mean Platelet Volume 9.3 fL 9.5 fL Neutrophils (%) (Auto) 62.0 % 51.1 % Lymphocytes (%) (Auto) 18.8 % 27.2 % Monocytes (%) (Auto) 17.1 % 18.3 % Eosinophils (%) (Auto) 0.4 % 0.8 % Basophils (%) (Auto) 0.4 % 0.5 % Neutrophils # (Auto) 3.31 K/uL 1.93 K/uL Lymphocytes # (Auto) 1.00 K/uL 1.03 K/uL Monocytes # (Auto) 0.91 K/uL 0.69 K/uL Eosinophils # (Auto) 0.02 K/uL 0.03 K/uL Basophils # (Auto) 0.02 K/uL 0.02 K/uL RDW Standard Deviation 39.9 fL 41.8 fL RDW Coefficient of Variation 12.4 % 12.6 % Immature Granulocyte % (Auto) 1.3 % 2.1 % Immature Granulocyte # (Auto) 0.07 K/uL 0.08 K/uL Prothrombin Time 11.0 SECONDS Prothromb Time International Ratio 1.0 Activated Partial Thromboplast Time 27.1 SECONDS Partial Thromboplastin Ratio 1.0 Sodium Level 136 mmol/L Potassium Level 4.0 mmol/L Chloride Level 104 mmol/L Carbon Dioxide Level 24 mmol/L Anion Gap 8.0 mmol/L Blood Urea Nitrogen 7 mg/dl Creatinine 1.20 mg/dl Est Creatinine Clear Calc Drug Dose 133.3 ml/min Estimated GFR () 95.5 Estimated GFR (Non- 82.4 BUN/Creatinine Ratio 5.8 Random Glucose 97 mg/dl Calcium Level 8.9 mg/dl Total Bilirubin 0.6 mg/dl Aspartate Amino Transf (AST/SGOT) 28 U/L Alanine Aminotransferase (ALT/SGPT) 50 U/L Alkaline Phosphatase 80 U/L Total Protein 7.6 gm/dl Albumin 3.2 gm/dl Globulin 4.4 gm/dl Albumin/Globulin Ratio 0.7 Diagnostic Results [~ rep ct add3]] ABDOMEN AND PELVIS CT WITH IV AND ORAL CONTRAST CT DOSE: 1517.05 mGy.cm HISTORY: Pain ABDOMINAL PAIN/GI--? DIVERTICULITIS--GIVE PO AND IV CONTRAST TECHNIQUE: Multiaxial CT images of the abdomen and pelvis were performed following the use of intravenous and oral contrast. COMPARISON STUDY: None. FINDINGS: Minimal bibasilar atelectasis. Fatty infiltration of liver. Gallbladder is negative for distention. Kidneys enhance uniformly. Spleen and pancreas are unremarkable. Cecum and proximal ascending colon shows significant wall thickening and/or edematous change. Terminal ileum appears to be unremarkable. There is a trace amount. A colonic infiltrative change with a trace amount of fluid within the lower right paracolic gutter region. At this point and air-filled appendix is identified. The appendix most likely is normal with a trace amount surrounding reactive fluid. Possibility of a colitis versus the less likely possibility of appendicitis epiploica or cecal diverticulitis is a consideration. There is no drainable abscess or collection. The remainder the colon demonstrates a slight degree of wall thickening of the transverse and descending colonic regions. Moderate amount of fecal material is identified within the sigmoid. There is again no evidence for abscess collection or obstruction. IMPRESSION: 1. Findings consistent with wall thickening and pericolonic infiltrative change of the cecum, proximal a sending colon, as well as components of the descending and sigmoid regions. 2. Trace pericolonic fluid with no evidence for abscess collection or obstruction. 3. The appendix is considered air-filled and most likely normal 4. Overall, the appearance is most consistent with that of a nonspecific colitis, with possibility of a superimposed component of cecal diverticulitis a less likely possibility. Electronically signed by: Ata Velazquez M.D. 11/25/2016 8:46 PM Assessment and Plan Campylobacter diarrhea Likely secondary to food poisoning. Started on Zithromax. Await ID input, Appreciate GI input. Clear liqs and IV fluids Cont. Synthroid
[2016-11-26 08:07] LABS: CALCIUM 8.7 mg/dl (8.5-10.1); CREATININE 1.2 mg/dl (0.60-1.40); MAGNESIUM 1.9 mg/dl (1.8-2.4); POTASSIUM 3.9 mmol/L (3.5-5.1)
[2016-11-26] MEDS ORDERED: AZITHROMYCIN 250 MG TAB PO SCH (10:00)
[2016-11-26] MEDS ORDERED: AZITHROMYCIN 250 MG TAB PO ONE (10:30)
[2016-11-26] MEDS: PANTOprazole INJ 40 MG in SYRINGE 0 ML IV SCH (10:36)
--- NOTE | 2016-11-26 13:59 | Gastrointestinal Consultation ---
Gastrointestinal Consultation Date of Consultation: Nov 26, 2016 Attending Physician: Dr. Berkowitz Consulting Physician: Dr. Waller/[facility] Reason for Consultation: Colitis History of Present Illness Patient is a 26 year old male with a history of abdominal pain, diarrhea, nausea with vomiting as well as fevers that have been ongoing for 5 days. Symptoms have been associated with loss of appetite and weight loss. He presented to the ER due to ongoing symptoms and increasing fatigue/weakness. On arrival, he was noted to be hemodynamically stable without any anemia, leukocytosis, or electrolyte abnormalities. CT imaging was obtained and demonstrated a nonspecific colitis throughout the entire colon. Since admission , he has undergone stool studies and it has been reported to me from nursing that he has had a positive preliminary culture for campylobacter. He was given a single dose of Zithromax. Currently, the patient is reporting mild bilateral lower quadrant abdominal pain 2/10 in intensity without radiation. Stool frequency is 5-10 times per day. He did have a bloody bowel movement this morning for the first time. Patient does not have any known suspicious food consumption other than a hamburger at [employer] which he states was well cooked. Past Medical/Surgical History Medical Problems: (1) Colitis Status: Acute (2) Failure of outpatient treatment Status: Acute (3) Laceration of thumb, right, with tendon involvement Status: Acute (4) Rectal bleeding Status: Acute Past Medical History: No relevant past medical history Past Surgical History: No prior surgical history Family History Negative for GI malignancy or IBD Social History Smoking Status: Never Smoker Alcohol Use: other (rare) Drug Use: none Marital Status: , in relationship Occupation Status: employed Allergies Coded Allergies: No Known Allergies (Unverified , 11/25/16) Current Medications Home Meds and Scripts Medications Dose Route/Sig Max Daily Dose Days Date Category Zofran Odt (Ondansetron HCl) 4 Mg Tab 4 Mg SL Q6H PRN 11/25/16 Reported Advil (Ibuprofen) 200 Mg Tab 200-600 Mg PO DAILY PRN 11/21/16 Reported Synthroid (Levothyroxine Sodium) 200 Mcg Tab 200 Mcg PO DAILY 11/21/16 Reported Review of Systems See HPI for pertinent positives & negatives. A total of 10 systems reviewed and were otherwise negative. Physical Exam Date Time Temp Pulse Resp B/P Pulse Ox O2 Delivery O2 Flow Rate FiO2 11/26/16 10:14 92 Room Air 11/26/16 09:28 37.2 79 20 145/82 82 11/26/16 04:59 38.2 11/26/16 01:13 36.9 88 18 134/80 96 Room Air 11/26/16 00:57 Room Air 11/25/16 23:32 37.7 85 20 121/77 96 11/25/16 23:25 85 20 121/77 96 Room Air 11/25/16 21:56 88 20 118/73 96 Room Air 11/25/16 21:01 88 20 115/70 96 Room Air 11/25/16 19:42 88 20 115/70 96 Room Air 11/25/16 18:13 80 11/25/16 16:13 37.7 109 20 121/77 96 Room Air General Appearance: WD/WN, no apparent distress Eyes: EOMI ENT: hearing grossly normal Neck: supple Respiratory/Chest: lungs clear, normal breath sounds, no respiratory distress Cardiovascular: regular rate, rhythm, no gallop, no murmur Abdomen: normal bowel sounds, soft, + tenderness (bilateral lower quadrants) Extremities: no pedal edema Neurologic/Psych: alert, normal mood/affect, oriented x 3 Skin: normal color Laboratory Results Last 24 Hours Test 11/25/16 17:43 11/26/16 07:04 White Blood Count 5.33 K/uL 3.78 K/uL Red Blood Count 4.82 M/uL 4.47 M/uL Hemoglobin 15.1 g/dL 14.3 g/dL Hematocrit 42.3 % 40.3 % Mean Corpuscular Volume 87.8 fL 90.2 fL Mean Corpuscular Hemoglobin 31.3 pg 32.0 pg Mean Corpuscular Hemoglobin Concent 35.7 g/dl 35.5 g/dl Platelet Count 187 K/uL 167 K/uL Mean Platelet Volume 9.3 fL 9.5 fL Neutrophils (%) (Auto) 62.0 % 51.1 % Lymphocytes (%) (Auto) 18.8 % 27.2 % Monocytes (%) (Auto) 17.1 % 18.3 % Eosinophils (%) (Auto) 0.4 % 0.8 % Basophils (%) (Auto) 0.4 % 0.5 % Neutrophils # (Auto) 3.31 K/uL 1.93 K/uL Lymphocytes # (Auto) 1.00 K/uL 1.03 K/uL Monocytes # (Auto) 0.91 K/uL 0.69 K/uL Eosinophils # (Auto) 0.02 K/uL 0.03 K/uL Basophils # (Auto) 0.02 K/uL 0.02 K/uL RDW Standard Deviation 39.9 fL 41.8 fL RDW Coefficient of Variation 12.4 % 12.6 % Immature Granulocyte % (Auto) 1.3 % 2.1 % Immature Granulocyte # (Auto) 0.07 K/uL 0.08 K/uL Prothrombin Time 11.0 SECONDS Prothromb Time International Ratio 1.0 Activated Partial Thromboplast Time 27.1 SECONDS Partial Thromboplastin Ratio 1.0 Sodium Level 136 mmol/L 140 mmol/L Potassium Level 4.0 mmol/L 3.9 mmol/L Chloride Level 104 mmol/L 107 mmol/L Carbon Dioxide Level 24 mmol/L 26 mmol/L Anion Gap 8.0 mmol/L 7.0 mmol/L Blood Urea Nitrogen 7 mg/dl 7 mg/dl Creatinine 1.20 mg/dl 1.20 mg/dl Est Creatinine Clear Calc Drug Dose 133.3 ml/min 133.3 ml/min Estimated GFR () 95.5 95.5 Estimated GFR (Non- 82.4 82.4 BUN/Creatinine Ratio 5.8 6.0 Random Glucose 97 mg/dl 93 mg/dl Calcium Level 8.9 mg/dl 8.7 mg/dl Total Bilirubin 0.6 mg/dl Aspartate Amino Transf (AST/SGOT) 28 U/L Alanine Aminotransferase (ALT/SGPT) 50 U/L Alkaline Phosphatase 80 U/L Total Protein 7.6 gm/dl Albumin 3.2 gm/dl Globulin 4.4 gm/dl Albumin/Globulin Ratio 0.7 Magnesium Level 1.9 mg/dl Impression Patient is a 26 year old male admitted with diarrhea, abdominal pain, rectal bleeding and abnormal CT scan just found to have a positive stool culture for Campylobacter. Plan 1. Typically, this should be managed with Zithromax for 3 days duration but will defer this to ID as they have been consulted in this case. 2. Supportive management with analgesics, antiemetics and IV/oral rehydration. 3. Avoidance of NSAIDs. Thank you for allowing us to participate in the care of this pleasant patient. If you have any questions or concerns, please do not hesitate to contact us. Agree with [facility] as above Abd: Soft, Tender B/L LQ, ND, +BS Continue current therapy Continue supportive care
--- NOTE | 2016-11-26 14:53 | Progress Note ---
Progress Note Date of Service Nov 26, 2016. Progress Note ID Consult Dictated #[id number] A/P: 1. Diarrhea/Colitis -Await stool culture, pending -check blood cultures with fever -No contraindication to Azitho x 3 doses total -Would offer HIV testing -Continue supportive care, avoid anti-motility agents -Thank you
--- NOTE | 2016-11-26 15:13 | INFECT. DISEASE CONSULTATION ---
DATE OF CONSULTATION: 11/26/2016 REQUESTING PHYSICIAN: Dr. Berkowitz. HISTORY OF PRESENT ILLNESS: This is a 26-year-old gentleman who was admitted after he had 5 days worth of diarrhea prior to admission. He states on Wednesday he had a fast food burger and within 12 hours had an episode of vomiting. This progressed to fevers, muscle pain, joint pain and eventual diarrhea. He was seen in the Emergency Room and was discharged home. He was also seen by [facility] where he provided a stool specimen. This was reportedly negative for C. diff. He continued to have diarrhea and yesterday noticed significant bleeding associated with this. For this reason, he presented back to the hospital. He continues with fevers, although he states they are now low grade where before there were greater than 101 degrees. He is currently tolerating a clear liquid diet. He denies any vomiting since Wednesday. His diarrhea is resolving and he has not had any bleeding today. He states that his maximal he was having between 8-10 loose bowel movements daily. He was given Imodium in the [facility], although he felt that this made his abdominal cramping worse and he self-discontinued this. He was given a 1 time dose of azithromycin here. A C. diff was repeated here and is negative. A stool culture was obtained and is pending. Infectious diseases was asked to consult on this patient for campylobacter diarrhea; however, I do not see any culture data confirming this. A GI consultation is also in place. He did have a CAT scan which showed colitis versus appendicitis. His LFTs have been within normal limits, his creatinine is normal and his white count is 3.7. He did have a T-max of 38.2. He is currently afebrile and comfortable. He is eating clear liquids on my exam and tolerating these well. He denies any chest pain, cough, shortness of breath or nausea or vomiting. He is hungry. He is tolerating clears. He did not have any bloody diarrhea today. He denies any joint or muscle pain. He denies any exotic or unpasteurized foods in the recent past. In early October, he and his took a trip to [place]. She is present. He is not sick. He denies any other additional travel. He is on Synthroid, but this is chronic and his dose has not been changed recently. All remaining review of systems are reviewed and are negative except for as noted above. PAST MEDICAL HISTORY: Significant for hypothyroidism. PAST SURGICAL HISTORY: Unknown. SOCIAL HISTORY: Negative for tobacco use, alcohol use or drug use. He does live with his family. Again, he denies any sick contacts. Remaining social history is as above. ALLERGIES: He has no known drug allergies. CURRENT MEDICATIONS: Include Protonix, Synthroid, potassium, Zofran, acetaminophen, morphine, Tylenol, Ambien and a 1 time dose of the azithromycin today. PHYSICAL EXAMINATION: VITAL SIGNS: His current temperature is 37.2, T-max is 38.2 at 5:00 a.m., pulse 79, respiratory rate 20, blood pressure 145/82, oxygen saturation is 92-96% on room air. GENERAL: He is awake, alert and oriented x3. He is in no acute distress. HEENT: Mucous membranes are moist. Extraocular muscles are intact. HEART: Regular. LUNGS: Clear. ABDOMEN: Soft, nontender, and nondistended. There is no rebound, rigidity or guarding. EXTREMITIES: There is no lower extremity edema bilaterally. SKIN: Without rash. LABORATORY STUDIES: CBC today reveals a white blood cell count of 3.7, hemoglobin 14.3, platelets are 167. Chemistry panel reveals a sodium of 140, potassium 3.9, chloride 107, bicarbonate 26, BUN 7, creatinine 1.2, glucose is 93. LFTs are within normal limits on admission. Stool culture is pending. C. diff is negative. IMAGING: As previously documented. ASSESSMENT AND PLAN: 1. Likely infectious diarrhea. Stool culture is pending. C. diff is negative. He has not had recent antibiotics other than the dose of azithromycin. Certainly he could finish a 3-day course empirically for suspected campylobacter diarrhea pending the results of his stool culture. I do not have any contraindication to this. Imodium on other antimotility agents should be avoided. He does seem to be improving. Blood cultures will be obtained; however, secondary to his fever. I would also recommend offering HIV testing. Thank you for this consultation.
[2016-11-27] MEDS: LEVOTHYROXINE 200 MCG TAB PO SCH (06:06)
[2016-11-27 07:19] LABS: HEMATOCRIT 40.3 % (42-52); MEAN CELL VOLUME 88.6 fL (80-100); MEAN CORPUSCULAR HEMOGLOBIN 31.2 pg (25-34); MEAN CORPUSCULAR HGB CONC 35.2 g/dl (32-36); MEAN PLATELET VOLUME 9.3 fL (7.4-10.4); PLATELET COUNT 188 K/uL (130-400); RED BLOOD COUNT 4.55 M/uL (4.7-6.1); WHITE BLOOD COUNT 5.28 K/uL (4.8-10.8)
[2016-11-27 07:25] VITALS: BP 129/76; PULSE 77; TEMP 37.1; O2SAT 94
[2016-11-27] MEDS: NSS + 20MEQ KCL 1000ML 1,000 ML IV SCH (07:37)
[2016-11-27] MEDS: PANTOprazole INJ 40 MG in SYRINGE 0 ML IV SCH (07:37)
[2016-11-27 07:46] LABS: BUN/CREATININE RATIO 5.8 (10-20); CALCIUM 8.6 mg/dl (8.5-10.1); CREATININE 1.2 mg/dl (0.60-1.40); POTASSIUM 4.2 mmol/L (3.5-5.1)
[2016-11-27 07:49] LABS: COMPLETE YES; EOSINOPHIL % 0.9 %; LYMPH ABS # 1.53 K/uL (1.2-3.4); LYMPHOCYTE % 28.9 %; META ABS # 0.05 K/uL (0-0); METAMYELOCYTE % 0.9 %; MYELOCYTE % 1.8 %; NEUTROPHILS % 56.1 %; TOXIC GRANULATION 2+
--- NOTE | 2016-11-27 10:42 | Gastroenterology Progress Note ---
Progress Note Date of Service: Nov 27, 2016 Subjective Pt evaluation today including: conversation w/ patient, physical exam, lab review, review of inpatient medication list Patient reports significant improvement in symptoms. No further nausea or vomiting and diarrhea has significantly reduced. Minimal lower abdominal pain rated 1/10 at present. Tolerating regular diet. Review of Systems Constitutional: + see HPI Abdomen: + see HPI Medications Current Inpatient Medications Medications (Trade) Dose Ordered Sig/Lele Route Start Time Stop Time Status Last Admin Dose Admin Ioversol (Optiray 320) 111 ml UD PRN IV 11/25/16 18:15 11/29/16 18:14 Acetaminophen (Tylenol Tab) 650 mg Q4H PRN PO 11/25/16 22:00 12/25/16 21:59 11/26/16 04:59 650 MG Zolpidem Tartrate (Ambien Tab) 5 mg HSZ PRN PO 11/25/16 22:00 12/25/16 21:59 Levothyroxine Sodium (Synthroid Tab) 200 mcg DAILYBB PO 11/26/16 06:30 12/26/16 06:29 11/27/16 06:06 200 MCG Ondansetron HCl 4 mg 4 mg Q6H PRN IV 11/25/16 22:15 12/25/16 22:14 Acetaminophen 100 ml @ 400 mls/hr Q8H PRN IV 11/25/16 22:15 12/25/16 22:14 Pantoprazole Sodium 40 mg/ Syringe 10 ml @ 5 mls/min DAILY@11 IV 11/26/16 11:00 12/26/16 10:59 11/27/16 07:37 5 MLS/MIN Potassium Chloride/Sodium Chloride (Nss + 20meq KCl 1000ml) 1,000 ml @ 100 mls/hr Q10H IV 11/26/16 02:30 12/26/16 02:29 11/27/16 07:37 100 MLS/HR Morphine Sulfate (MoRPHine SULFATE INJ) 2 mg Q2H PRN IV 11/25/16 22:15 12/09/16 22:14 Morphine Sulfate (MoRPHine SULFATE INJ) 4 mg Q2H PRN IV 11/25/16 22:15 12/09/16 22:14 Objective Vital Signs Date Time Temp Pulse Resp B/P Pulse Ox O2 Delivery O2 Flow Rate FiO2 11/27/16 08:03 Room Air 11/27/16 07:25 37.1 77 17 129/76 94 Room Air 11/26/16 23:57 Room Air 11/26/16 23:31 36.6 94 20 145/83 94 Room Air 11/26/16 17:55 36.8 80 16 141/62 98 Room Air 11/26/16 16:00 93 Room Air Physical Exam General Appearance: no apparent distress Eyes: EOMI ENT: hearing grossly normal Respiratory/Chest: lungs clear, normal breath sounds, no respiratory distress Cardiovascular: regular rate, rhythm, no gallop, no murmur Abdomen: normal bowel sounds, non tender, soft Neurologic/Psych: alert, normal mood/affect, oriented x 3 Skin: warm/dry Laboratory Results Last 24 Hours Test 11/27/16 06:44 White Blood Count 5.28 K/uL Red Blood Count 4.55 M/uL Hemoglobin 14.2 g/dL Hematocrit 40.3 % Mean Corpuscular Volume 88.6 fL Mean Corpuscular Hemoglobin 31.2 pg Mean Corpuscular Hemoglobin Concent 35.2 g/dl Platelet Count 188 K/uL Mean Platelet Volume 9.3 fL RDW Standard Deviation 39.8 fL RDW Coefficient of Variation 12.5 % Neutrophils % (Manual) 56.1 % Lymphocytes % (Manual) 28.9 % Monocytes % (Manual) 11.4 % Eosinophils % (Manual) 0.9 % Metamyelocytes % 0.9 % Myelocytes % 1.8 % Neutrophils # (Manual) 2.96 K/uL Total Absolute Neutrophils 2.96 K/uL Lymphocytes # (Manual) 1.53 K/uL Total Absolute Lymphocytes 1.53 K/uL Monocytes # (Manual) 0.60 K/uL Eosinophils # (Manual) 0.05 K/uL Metamyelocytes # 0.05 K/uL Myelocytes # 0.10 K/uL Toxic Granulation 2+ Sodium Level 140 mmol/L Potassium Level 4.2 mmol/L Chloride Level 107 mmol/L Carbon Dioxide Level 28 mmol/L Anion Gap 5.0 mmol/L Blood Urea Nitrogen 7 mg/dl Creatinine 1.20 mg/dl Est Creatinine Clear Calc Drug Dose 133.3 ml/min Estimated GFR () 95.5 Estimated GFR (Non- 82.4 BUN/Creatinine Ratio 5.8 Random Glucose 92 mg/dl Calcium Level 8.6 mg/dl Magnesium Level 2.0 mg/dl Assessment and Plan Patient is a 26 year old male admitted with diarrhea, abdominal pain, rectal bleeding and abnormal CT scan just found to have a positive stool culture for Campylobacter. 1. Complete course of Zithromax. 2. Okay to discharge from GI standpoint. Agree with [facility] as above Abd: Soft, NT, ND, +BS Continue current therapy
--- NOTE | 2016-11-27 11:37 | Progress Note ---
Subjective Date of Service: Nov 27, 2016. Subjective afebrile overnight, diarrhea better. stool culture + camplobacter, had first dose azitho yesterday. wbc improved. spoke with primary, for d/c home today. no overnight events. Problem List Medical Problems: (1) Colitis Status: Acute (2) Failure of outpatient treatment Status: Acute (3) Laceration of thumb, right, with tendon involvement Status: Acute (4) Rectal bleeding Status: Acute Objective Vital Signs Date Time Temp Pulse Resp B/P Pulse Ox O2 Delivery O2 Flow Rate FiO2 11/27/16 08:03 Room Air 11/27/16 07:25 37.1 77 17 129/76 94 Room Air 11/26/16 23:57 Room Air 11/26/16 23:31 36.6 94 20 145/83 94 Room Air 11/26/16 17:55 36.8 80 16 141/62 98 Room Air 11/26/16 16:00 93 Room Air Laboratory Results Item Value Date Time Shiga Toxin Test - Preliminary Resulted 11/25/162121 Stool No E. Coli shiga toxin 1 or shiga tox... C.difficile Toxin B Gene (PCR) - Final Complete 11/25/162121 Stool No C. difficile toxin B gene detected Last 24 Hours Test 11/27/16 06:44 White Blood Count 5.28 K/uL Red Blood Count 4.55 M/uL Hemoglobin 14.2 g/dL Hematocrit 40.3 % Mean Corpuscular Volume 88.6 fL Mean Corpuscular Hemoglobin 31.2 pg Mean Corpuscular Hemoglobin Concent 35.2 g/dl Platelet Count 188 K/uL Mean Platelet Volume 9.3 fL RDW Standard Deviation 39.8 fL RDW Coefficient of Variation 12.5 % Neutrophils % (Manual) 56.1 % Lymphocytes % (Manual) 28.9 % Monocytes % (Manual) 11.4 % Eosinophils % (Manual) 0.9 % Metamyelocytes % 0.9 % Myelocytes % 1.8 % Neutrophils # (Manual) 2.96 K/uL Total Absolute Neutrophils 2.96 K/uL Lymphocytes # (Manual) 1.53 K/uL Total Absolute Lymphocytes 1.53 K/uL Monocytes # (Manual) 0.60 K/uL Eosinophils # (Manual) 0.05 K/uL Metamyelocytes # 0.05 K/uL Myelocytes # 0.10 K/uL Toxic Granulation 2+ Sodium Level 140 mmol/L Potassium Level 4.2 mmol/L Chloride Level 107 mmol/L Carbon Dioxide Level 28 mmol/L Anion Gap 5.0 mmol/L Blood Urea Nitrogen 7 mg/dl Creatinine 1.20 mg/dl Est Creatinine Clear Calc Drug Dose 133.3 ml/min Estimated GFR () 95.5 Estimated GFR (Non- 82.4 BUN/Creatinine Ratio 5.8 Random Glucose 92 mg/dl Calcium Level 8.6 mg/dl Magnesium Level 2.0 mg/dl Assessment and Plan (1) Colitis Assessment & Plan: azitho 500mg x 2 more doses. continue hydration, supportive care. improved. ok for d/c from ID standpoint. 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 Would avoid anti-motility agents.
[2016-11-27] MEDS ORDERED: AZITHROMYCIN 250 MG TAB PO SCH (12:00)
[2016-11-27] MEDS ORDERED: AZIT-57 PO (14:26)
--- NOTE | 2016-11-27 14:28 | Discharge Instructions ---
Discharge Instructions Date of Service Nov 27, 2016. Admission Reason for Admission: Colitis, Rectal Bleeding Discharge Discharge Diagnosis / Problem: Campylobacter infectious diarrhea Discharge Goals Goal(s): Decrease discomfort Activity Recommendations Activity Limitations: resume your previous activity Lifting Limitations: none Exercise/Sports Limitations: none May Resume Sexual Activity: when tolerated Shower/Bathe: no limitations Driving or Machine Use: no limitations . Instructions / Follow-Up Instructions / Follow-Up Follow up with PCP and Infectious diseases after discharge (one to two weeks) Current Hospital Diet Patient's current hospital diet: Regular Diet Discharge Diet Recommended Diet: Regular Diet Pending Studies Studies pending at discharge: no Laboratory Results 11/27/16 06:44 Red Blood Count 4.55, Mean Corpuscular Volume 88.6, Mean Corpuscular Hemoglobin 31.2, Mean Corpuscular Hemoglobin Concent 35.2, Mean Platelet Volume 9.3 11/27/16 06:44 Test 11/25/16 17:43 11/26/16 07:04 11/27/16 06:44 Prothrombin Time 11.0 SECONDS (9.0-12.0) Prothromb Time International Ratio 1.0 (0.9-1.1) Activated Partial Thromboplast Time 27.1 SECONDS (21.0-31.0) Partial Thromboplastin Ratio 1.0 Total Bilirubin 0.6 mg/dl (0.2-1) Aspartate Amino Transf (AST/SGOT) 28 U/L (15-37) Alanine Aminotransferase (ALT/SGPT) 50 U/L (12-78) Alkaline Phosphatase 80 U/L (45-117) Total Protein 7.6 gm/dl (6.4-8.2) Albumin 3.2 gm/dl (3.4-5.0) Globulin 4.4 gm/dl (2.5-4.0) Albumin/Globulin Ratio 0.7 (0.9-2) Immature Granulocyte % (Auto) 2.1 % White Blood Count 3.78 K/uL (4.8-10.8) 5.28 K/uL (4.8-10.8) Red Blood Count 4.47 M/uL (4.7-6.1) 4.55 M/uL (4.7-6.1) Hemoglobin 14.3 g/dL (14.0-18.0) 14.2 g/dL (14.0-18.0) Hematocrit 40.3 % (42-52) 40.3 % (42-52) Mean Corpuscular Volume 90.2 fL (80-100) 88.6 fL (80-100) Mean Corpuscular Hemoglobin 32.0 pg (25-34) 31.2 pg (25-34) Mean Corpuscular Hemoglobin Concent 35.5 g/dl (32-36) 35.2 g/dl (32-36) Platelet Count 167 K/uL (130-400) 188 K/uL (130-400) Mean Platelet Volume 9.5 fL (7.4-10.4) 9.3 fL (7.4-10.4) Neutrophils (%) (Auto) 51.1 % Lymphocytes (%) (Auto) 27.2 % Monocytes (%) (Auto) 18.3 % Eosinophils (%) (Auto) 0.8 % Basophils (%) (Auto) 0.5 % Neutrophils # (Auto) 1.93 K/uL (1.4-6.5) Lymphocytes # (Auto) 1.03 K/uL (1.2-3.4) Monocytes # (Auto) 0.69 K/uL (0.11-0.59) Eosinophils # (Auto) 0.03 K/uL (0-0.5) Basophils # (Auto) 0.02 K/uL (0-0.2) Immature Granulocyte # (Auto) 0.08 K/uL (0.00-0.02) RDW Standard Deviation 39.8 fL (36.4-46.3) RDW Coefficient of Variation 12.5 % (11.5-14.5) Neutrophils % (Manual) 56.1 % Lymphocytes % (Manual) 28.9 % Monocytes % (Manual) 11.4 % Eosinophils % (Manual) 0.9 % Metamyelocytes % 0.9 % Myelocytes % 1.8 % Neutrophils # (Manual) 2.96 K/uL (1.4-6.5) Total Absolute Neutrophils 2.96 K/uL (1.4-6.5) Lymphocytes # (Manual) 1.53 K/uL (1.2-3.4) Total Absolute Lymphocytes 1.53 K/uL (1.2-3.4) Monocytes # (Manual) 0.60 K/uL (0.11-0.59) Eosinophils # (Manual) 0.05 K/uL (0-0.5) Metamyelocytes # 0.05 K/uL (0-0) Myelocytes # 0.10 K/uL (0-0) Toxic Granulation 2+ Anion Gap 5.0 mmol/L (3-11) Est Creatinine Clear Calc Drug Dose 133.3 ml/min Estimated GFR () 95.5 Estimated GFR (Non- 82.4 BUN/Creatinine Ratio 5.8 (10-20) Calcium Level 8.6 mg/dl (8.5-10.1) Magnesium Level 2.0 mg/dl (1.8-2.4) Date/Time Source Procedure Growth Status 11/26/16 16:25 Blood Blood Culture Pending Received 11/25/16 21:22 Stool Shiga Toxin Test - Preliminary No E. Coli shiga toxin 1 or shiga tox... Resulted 11/25/16 21:22 Stool Culture - Preliminary Campylobacter Jejuni Resulted Medical Emergencies . Who to Call and When: Medical Emergencies: If at any time you feel your situation is an emergency, please call 911 immediately. . Non-Emergent Contact Non-Emergency issues call your: Primary Care Provider . Past History Medical & Surgical History: (1) Hypothyroid (2) Colitis . "Provider Documentation" section prepared by Glenda Davis. VTE Core Measure Inpt VTE Proph given/why not?: SCD's
--- NOTE | 2016-11-27 14:33 | Discharge Summary ---
Discharge Summary Date of Service Nov 27, 2016. Discharge Summary Admission Date: Nov 25, 2016 at 21:59 Discharge Date: Nov 27, 2016 Discharge Disposition: Home Principal Diagnosis: Campylobacter jejuni diarrhea Problems/Secondary Diagnoses: Hypothyroid Consultations: Infectious diseases Gastroenterology Medication Reconciliation New Medications: Azithromycin (Azithromycin) 250 Mg Tab 500 MG PO QAM for 2 Days, #4 TAB Continued Medications: Levothyroxine Sodium (Synthroid) 200 Mcg Tab 200 MCG PO DAILY, TAB Discontinued Medications: Ibuprofen (Advil) 200 Mg Tab 200-600 MG PO DAILY PRN for Pain, TAB Ondasetron Odt (Zofran Odt) 4 Mg Tab 4 MG SL Q6H PRN for Nausea or Vomiting, #6 TAB Discharge Exam Physical Exam: General Appearance: WD/WN, no apparent distress Eyes: normal inspection, PERRL, EOMI ENT: normal ENT inspection, hearing grossly normal, TMs normal, pharynx normal Neck: supple, no adenopathy, thyroid normal Respiratory/Chest: chest non-tender, lungs clear, normal breath sounds Cardiovascular: regular rate, rhythm, no edema, no JVD Abdomen / GI: normal bowel sounds, non tender, soft Extremities: normal inspection, no calf tenderness 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 He states on Wednesday he had a fast food burger and within 12 hours had an episode of vomiting. This progressed to fevers, muscle pain, joint pain and eventual diarrhea. He was seen in the Emergency Room and was discharged home. He was also seen by [facility] where he provided a stool specimen. This was reportedly negative for C. diff. He continued to have diarrhea and yesterday noticed significant bleeding associated with this. For this reason, he presented back to the hospital. He continues with fevers, although he states they are now low grade where before there were greater than 101 degrees. He is currently tolerating a clear liquid diet. He denies any vomiting since Wednesday. His diarrhea is resolving and he has not had any bleeding today. He states that his maximal he was having between 8-10 loose bowel movements daily. He was given Imodium in the [facility], although he felt that this made his abdominal cramping worse and he self-discontinued this. He was given a 1 time dose of azithromycin here. A C. diff was repeated here and is negative. A stool culture was obtained and is pending. Infectious diseases was asked to consult on this patient for campylobacter diarrhea; however, I do not see any culture data confirming this. A GI consultation is also in place. He did have a CAT scan which showed colitis versus appendicitis. His LFTs have been within normal limits, his creatinine is normal and his white count is 3.7. He did have a T-max of 38.2. He is currently afebrile and comfortable. He is eating clear liquids on my exam and tolerating these well. He denies any chest pain, cough, shortness of breath or nausea or vomiting. He is hungry. He is tolerating clears. He did not have any bloody diarrhea today. He denies any joint or muscle pain. He denies any exotic or unpasteurized foods in the recent past. In early October, he and his took a trip to [place]. She is present. He is not sick. He denies any other additional travel. He is on Synthroid, but this is chronic and his dose has not been changed recently A/P Campylobacter jejuni diarrhea: Resolved with symptomatic therapy. Zithromax was administered by mouth. IV fluids. ID and GI consulted. Hypothyroidism: Continue Synthroid. Total Time Spent: Less than 30 minutes This includes examination of the patient, discharge planning, medication reconciliation, and communication with other providers. Discharge Instructions Please refer to the electronic Patient Visit Report (Discharge Instructions) for additional information. Follow-Up Infectious diseases and IM in one week
[2016-11-27 14:40] VITALS: BP 129/76; PULSE 77; TEMP 37.1; O2SAT 94
[2016-11-27 14:58] VITALS: BP 118/74; PULSE 70; TEMP 37; O2SAT 96
== END 2016-11-27 15:30 | disposition home or self-care (01) | DRG 373 ==
LOC: ENRESERVDT → ENRESERVTM → C.EDB 16:02 → C.MS2W 21:59 → EDBEDREQTM 22:11 → EDBEDREQSVC 22:11
PROVIDERS: ADMIT Hospitalist; ATTEND Hospitalist
DX: A04.5 Campylobacter enteritis (principal); E03.9 Hypothyroidism, unspecified